=== PATIENT | female | born 1935 | race Caucasian/White ===

== ENCOUNTER → 2016-08-22 | Outpatient (CLI) | payer OTHER, MEDICARE | LOC: MMPC 11:11 | DX: I27.2 Other secondary pulmonary hypertension (principal); R60.9 Edema, unspecified; G47.33 Obstructive sleep apnea (adult) (pediatric) | CPT/HCPCS: 99213; G0463 ==

== ENCOUNTER → 2016-08-26 | Outpatient (CLI) | payer OTHER, MEDICARE ==
[2016-08-26 17:03] LABS: BASOPHILS # (AUTO) 0.04 10*3/UL; BASOPHILS % (AUTO) 0.6 % (0-1); EOSINOPHILS % (AUTO) 1.5 % (0-8); HEMATOCRIT 48.1 % (37.0-47.0); HEMOGLOBIN 16.1 g/dL (12.0-16.0); IMM GRAN % (AUTO) 0.1 % (0-5); IMM GRAN# (AUTO) 0.01 10*3/UL; LYMPHOCYTES # (AUTO) 1.46 10*3/uL; LYMPHOCYTES % (AUTO) 21.9 % (10-50); MEAN CORPUSCULAR HEMOGLOBIN 27.4 PG (27-31); MEAN CORPUSCULAR HGB CONC 33.5 g/dL (33-37); MEAN PLATELET VOLUME 9.4 FL (7.4-12.2); MONOCYTES % (AUTO) 7.5 % (5-15); NEUTROPHILS # (AUTO) 4.56 10*3/UL; NEUTROPHILS % (AUTO) 68.4 % (50-80); RDW COEFFICIENT OF VARIATION 19.4 % (11.5-14.5); RED BLOOD COUNT 5.88 10^6/uL (4.20-5.40); WHITE BLOOD COUNT 6.67 10^3/uL (4.8-10.8)
[2016-08-26 17:13] LABS: CALCIUM 9.7 mg/dL (8.7-10.7); POTASSIUM 4.2 meq/L (3.8-5.2)
[2016-08-26 17:57] LABS: PLATELET MORPHOLOGY COMMENT NORMAL MORPHOLOGY (NORM)
[2016-08-26 18:23] LABS: FREE T4 (FREE THYROXINE) 1.39 ng/dL (0.93-1.71)
== END ==
LOC: MOB LAB 16:25
DX: I10 Essential (primary) hypertension (principal); G47.33 Obstructive sleep apnea (adult) (pediatric); I27.2 Other secondary pulmonary hypertension; I50.9 Heart failure, unspecified
CPT/HCPCS: 36415; 80048; 83880; 84439; 84443; 85025

== ENCOUNTER 2016-09-03 17:57 | Emergency (ER) | payer OTHER, MEDICARE ==
[2016-09-03] MEDS ORDERED: NORMAL SALINE 10 ML SYRINGE FLUSH IVP PRN (18:25)
[2016-09-03 19:24] LABS: BASOPHILS # (AUTO) 0.04 10*3/UL; BASOPHILS % (AUTO) 0.5 % (0-1); EOSINOPHILS % (AUTO) 1.1 % (0-8); HEMATOCRIT 48.9 % (37.0-47.0); HEMOGLOBIN 16.3 g/dL (12.0-16.0); IMM GRAN % (AUTO) 0.1 % (0-5); IMM GRAN# (AUTO) 0.01 10*3/UL; LYMPHOCYTES # (AUTO) 1.44 10*3/uL; LYMPHOCYTES % (AUTO) 19.2 % (10-50); MEAN CORPUSCULAR HEMOGLOBIN 26.8 PG (27-31); MEAN CORPUSCULAR HGB CONC 33.3 g/dL (33-37); MEAN PLATELET VOLUME 9.8 FL (7.4-12.2); MONOCYTES # (AUTO) 0.52 10*3/UL (0.3-0.8); MONOCYTES % (AUTO) 6.9 % (5-15); NEUTROPHILS # (AUTO) 5.42 10*3/UL; NEUTROPHILS % (AUTO) 72.2 % (50-80); RDW COEFFICIENT OF VARIATION 20.1 % (11.5-14.5); RED BLOOD COUNT 6.09 10^6/uL (4.20-5.40); WHITE BLOOD COUNT 7.51 10^3/uL (4.8-10.8)
[2016-09-03 19:30] LABS: PLATELET MORPHOLOGY COMMENT NORMAL MORPHOLOGY (NORM)
[2016-09-03 19:35] LABS: PROTHROMBIN TIME 15.7 secs (9.7-11.4)
[2016-09-03 19:38] LABS: BILIRUBIN,TOTAL 2.3 mg/dL (0.3-1.2); C-REACTIVE PROTEIN 1.9 mg/dL (0.0-0.9); CALCIUM 9.9 mg/dL (8.7-10.7); CREATININE 1.2 mg/dL (0.50-1.20); POTASSIUM 4.9 meq/L (3.8-5.2); TOTAL PROTEIN 6.6 g/dL (6.1-8.0)
[2016-09-03 21:06] VITALS: RESP 18; TEMP 96.5
--- NOTE | 2016-09-03 21:35 | PDOC ---
Lower Extremity Problem HPI - General Chief Complaint: Lower Extremity Problem/Injury Stated Complaint: LEG PAIN Date Seen by Provider: 09/03/16 Time Seen by Provider: 21:05 Source: POSITIVE: Patient Exam Limitations: POSITIVE: No limitations Nurse's Notes Reviewed & Considered: Yes - History of Present Illness Initial Comments: The patient is an 80-year-old female who presents to the emergency department with right leg pain. She has a known problem with her tricuspid valve and needs this replaced according to the doctors in [place]. She has had increased leg edema and congestive heart failure because of this. For the past couple of days she has had some pain in her right calf. She tried wearing compression stockings for most of the day today however seem to be having worse calf pain with the stockings on so they were removed. She was still having considerable pain and subsequently came to the emergency department by ambulance. She denies any current chest pain or increased shortness of breath. She denies abdominal pain, fevers or chills or any other associated symptoms. She is taking Lasix and the dose was just doubled yesterday. - Patient Home Medications Home Medications: Home Medications Potassium Chloride 1 tab PO BID #180 tab 05/18/16 Furosemide [Lasix] 1 tab PO BID #180 tab 06/14/16 Levothyroxine Sodium 1 tab PO QD #30 tab 08/31/16 Ascorbic Acid [Vitamin C] 1,000 mg PO DAILY 09/03/16 Cholecalciferol (Vitamin D3) [Vitamin D3] 5,000 unit PO DAILY 09/03/16 Garlic 1,000 mg PO DAILY 09/03/16 Levocarnitine Tartrate [l-Carnitine] 500 mg PO DAILY 09/03/16 Magnesium Oxide 400 mg PO DAILY 09/03/16 Multivitamin [Multivitamins] 1 each PO DAILY 09/03/16 Vitamin E 100 unit PO DAILY 09/03/16 - Patient Allergies Allergies/Adverse Reactions: Allergies Allergy/AdvReac Type Severity Reaction Status Date / Time Penicillins Allergy SWELLING Verified 09/03/16 18:17 Past Medical History - lucio HEENT History: Denies History Cardiovascular History: Hypertension Respiratory History: Other (please comment) Additional Respiratory History: pulmonary htn Gastrointestinal History: Denies History Genitourinary History: Denies History Endocrine History: Denies History Musculoskeletal History: Denies History Prosthesis or Implant: No Neurological History: Denies History Blood Disorders: Denies History Psychiatric History: Denies History History of Sexually Transmitted Diseases: No Cancer History: Denies History In Past Year Been Physically Harmed or Verbally Threatened: No History of MDRO: No History of Other Communicable Diseases: No Tobacco Use: Former Smoker Alcohol Use: Rarely Type of alcohol normally used: Beer Substance Use Type: None Previous Surgical History: No Significant Family History: No pertinent family hx Past Medical History Reviewed: Reviewed - No Changes ROS - Limitations ROS Limitations: No Limitations Constitution: DENIES: Chills, Fever Cardiovascular: DENIES: Chest Pain, Heart Palpitations Respiratory: DENIES: Shortness Of Breath Neurological: REPORTS: Denies Neuro Symptoms Gastrointestinal: REPORTS: Denies GI Symptoms. DENIES: Abdominal Pain Musculoskeletal: REPORTS: Calf Pain (Right-sided) Eyes: REPORTS: Denies Symptoms ENT: REPORTS: Denies Symptoms Skin: DENIES: Rash Lower Ext Problem Exam - General Appearance General Appearance: POSITIVE: Alert, Cooperative, No Acute Distress - Extremities Lower Extremity: POSITIVE: Other (Examination lower extremities reveals bilateral edema from the knees down, she does have tenderness to the right calf , good dorsalis pedis pulse bilaterally) Vascular: POSITIVE: No Vascular Compromise - Neuro / Psych Neuro/Psych: POSITIVE: Sensation Normal, Motor Normal - Skin Skin: POSITIVE: Normal Color, No Rash - HEENT HEENT: POSITIVE: Head Inspection Nml - Respiratory / CVS Respiratory / CVS: POSITIVE: No Respiratory Distress, Breath Sounds Normal, Regular Rate/Rhythm, Murmur (Grade 3/6 systolic murmur) Peripheral Pulses: Dorsalis-pedis (R): 2+, Dorsalis-pedis (L): 2+ - Abdomen Abdomen: Soft: (All Quadrants), Denies Tenderness: (All Quadrants), No Distention: (All Quadrants) Lower Ext Problem Progress - Results Reviewed by me Xrays/CTs/US Reviewed by me: Yes Discussed with Radiologist: Yes Radiology Findings: Ultrasound of the right lower extremity is negative for DVT. Lab Results Reviewed: Yes Lab Results:: Laboratory Results 09/03/16 Range/Units 19:21 WBC 7.51 (4.8-10.8) 10^3/uL RBC 6.09 H (4.20-5.40) 10^6/uL Hgb 16.3 H (12.0-16.0) g/dL Hct 48.9 H (37.0-47.0) % MCV 80.3 L (81-99) FL MCH 26.8 L (27-31) PG MCHC 33.3 (33-37) g/dL RDW Std Deviation 54.7 H (39-50) fL RDW Coeff of Shelly 20.1 H (11.5-14.5) % Plt Count 202 (140-350) 10*3/uL MPV 9.8 (7.4-12.2) FL Immature Gran % (Auto) 0.1 (0-5) % Neut % (Auto) 72.2 (50-80) % Lymph % (Auto) 19.2 (10-50) % Stanly % (Auto) 6.9 (5-15) % Eos % (Auto) 1.1 (0-8) % Baso % (Auto) 0.5 (0-1) % Immature Gran # (Auto) 0.01 10*3/UL Neut # (Auto) 5.42 10*3/UL Lymph # (Auto) 1.44 10*3/uL Stanly # (Auto) 0.52 (0.3-0.8) 10*3/UL Eos # (Auto) 0.08 10*3/UL Baso # (Auto) 0.04 10*3/UL WBC Morphology Comment Normal morphology (NORM) Plt Morphology Comment Normal morphology (NORM) RBC Morph Comment Normal morphology (NORM) PT 15.7 H (9.7-11.4) secs INR 1.51 (0.00-5.90) N/A Sodium 139 (135-145) meq/L Potassium 4.9 (3.8-5.2) meq/L Chloride 100 (98-112) meq/L Carbon Dioxide 25 (23-33) meq/L Anion Gap 14 (5-20) BUN 30 H (7-22) mg/dL Creatinine 1.2 (0.50-1.20) mg/dL Estimated GFR (>60 ml/min/1.73m(2)) BUN/Creatinine Ratio 25.00 H (6-20) Glucose 87 (78-110) mg/dL Calculated Osmolality 292.0 (267-292) mOsm/kg Calcium 9.9 (8.7-10.7) mg/dL Total Bilirubin 2.3 H (0.3-1.2) mg/dL AST 80 H (8-39) IU/L ALT 67 H (9-52) IU/L Alkaline Phosphatase 144 H (38-126) IU/L C-Reactive Protein 1.9 H (0.0-0.9) mg/dL NT-Pro-B Natriuret Pep 97356 H (0-450) PG/ML Total Protein 6.6 (6.1-8.0) g/dL Albumin 3.7 (3.5-4.8) g/dL Globulin 2.9 (2.50-4.10) g/dL Albumin/Globulin Ratio 1.20 L (1.3-2.0) mg/g - Patient's Progress MDM / ED Course: The ultrasound did not show any evidence of DVT. She does have known congestive heart failure and tricuspid valve dysfunction. She is in the process of being referred to the [facility] for surgical consideration/ evaluation. Currently I think her pain in her right calf is secondary to the edema in her lower extremities. Her Lasix dose was just doubled yesterday and she was advised to continue this dose for now. In addition she will continue compression stockings and try to put them on earlier in the morning before her legs start to swell. She is advised return to the emergency room she develops increased pain, fevers or chills, increased shortness of breath or chest pain, any worsening or change in symptoms. She will follow-up with primary care in approximately 1 week. In addition she will continue to pursue cardiac evaluation and [place]. - Consult Counseled: POSITIVE: Patient, Family, RE: Lab Results, RE: Radiology Results, RE : DX, RE: Need for F/U Patient Care Time - Estimated PCT Patient Care Time (In Minutes): 35 Vital Signs - Recent Vital Signs Vital Signs: Vital Signs (Last 8 hours) Temp Pulse Resp BP Pulse Ox 09/03/16 21:00 96.5 F L 85 18 114/70 94 - VS Reviewed Vital Signs Reviewed: Yes Discharge Clinical Impression: CHF (congestive heart failure), Leg edema Condition: Stable Patient Instructions Given at Discharge: Heart Failure (ED), Leg Edema (ED) Additional Instructions: The ultrasound of the right leg did not show any evidence of blood clot. The pain in the calf is thought to be more related to the extra swelling in her legs which causes stretching and can cause pain. This may have been exacerbated to some degree by the compression stockings. Would recommend continuation of the increased dose of Lasix to help try to eliminate extra fluid. In addition continue compression stockings, these work best if applied early in the morning before the swelling accumulates. You should have repeat blood work in approximately 1 week secondary to the increased dose of Lasix to make sure your kidney function and electrolytes are remaining good. In addition your liver enzymes were somewhat elevated today this is most likely related to the congestive heart failure as well. Keep your cardiology follow- up as scheduled. Return to the emergency room if increased leg pain or swelling , increased shortness of breath, any worsening or change in symptoms. Follow Up With: YVETTE LOZADA [Primary Care Provider] -
--- NOTE | 2016-09-04 04:24 | DI ---
HISTORY: Right calf pain x4 days. TECHNIQUE: Sonographic images of the right lower extremity were obtained and submitted for interpret ation. FINDINGS: Sonographic images through the right lower extremity demonstrates no evidence of deep veno us thrombosis. IMPRESSION: 1. No deep venous thrombosis.
== END 2016-09-03 20:20 | disposition home or self-care (01) ==
LOC: ER 17:57
DX: I50.9 Heart failure, unspecified (principal); R60.1 Generalized edema; I10 Essential (primary) hypertension; M79.604 Pain in right leg
CPT/HCPCS: 36415; 80053; 83880; 85025; 85610; 86140; 93971; 99283

== ENCOUNTER 2016-09-06 01:05 | Emergency (ER) | payer OTHER, MEDICARE ==
[2016-09-06 01:33] VITALS: RESP 20
[2016-09-06] MEDS ORDERED: NORMAL SALINE 10 ML SYRINGE FLUSH IVP PRN (01:36)
[2016-09-06] MEDS ORDERED: MORPHINE SULFATE 2 MG/1 ML IVP ONE ×3 (01:36→04:56)
[2016-09-06] MEDS ORDERED: ONDANSETRON 4 MG/2 ML VIAL IVP ONE (01:36)
--- NOTE | 2016-09-06 02:14 | PDOC ---
General Adult HPI - General Chief Complaint: General Medical Stated Complaint: Righ leg pain Date Seen by Provider: 09/06/16 Time Seen by Provider: 01:15 Source: POSITIVE: Patient Exam Limitations: POSITIVE: No limitations Nurse's Notes Reviewed & Considered: Yes - History of Present Illness Initial Comment: The patient is an 80-year-old female who returns to the emergency room with bilateral leg pain. She was evaluated here in the emergency room 2 nights ago with complaints of right calf pain. She had undergone ultrasound which was negative for DVT. She has a known problem with congestive heart failure and something wrong with her tricuspid valve. She has undergone cardiac workup in [place] and they have recommended referral to [place] for surgical considerations. Her lab work at her last visit revealed elevated liver enzymes as well as markedly elevated BNP. She had increased her dose of Lasix over the last several days and has been using compression stockings. She states that the swelling in her legs goes down at night however returns by the end of the day despite the compression stockings. She reports significant pain now in both of her legs which is unrelieved with Tylenol. This pain is keeping her from sleeping. In addition she has become increasingly weak in general. She is now unable to walk without assistance. She has significant shortness of breath with any activity. She denies chest pain. She reports that she feels like she is retaining fluid in her abdomen. Her abdomen was swollen enough this evening that they had to cut her panties at home to relieve the pressure. She denies any current abdominal pain, fevers or chills or any other associated complaints. Have you received a tetanus shot in the past 10 years?: Yes - Patient Home Medications Home Medications: Home Medications Potassium Chloride 1 tab PO BID #180 tab 05/18/16 Furosemide [Lasix] 1 tab PO BID #180 tab 06/14/16 Levothyroxine Sodium 1 tab PO QD #30 tab 08/31/16 Ascorbic Acid [Vitamin C] 1,000 mg PO DAILY 09/03/16 Cholecalciferol (Vitamin D3) [Vitamin D3] 5,000 unit PO DAILY 09/03/16 Garlic 1,000 mg PO DAILY 09/03/16 Levocarnitine Tartrate [l-Carnitine] 500 mg PO DAILY 09/03/16 Magnesium Oxide 400 mg PO DAILY 09/03/16 Multivitamin [Multivitamins] 1 each PO DAILY 09/03/16 Vitamin E 100 unit PO DAILY 09/03/16 - Patient Allergies Allergies/Adverse Reactions: Allergies Allergy/AdvReac Type Severity Reaction Status Date / Time Penicillins Allergy SWELLING Verified 09/06/16 01:22 Past Medical History - heen HEENT History: Denies History Cardiovascular History: Hypertension, Congenital Heart Disease, Valvular Heart Disease Respiratory History: Shortness of Breath, Other (please comment) Additional Respiratory History: pulmonary htn Gastrointestinal History: Denies History Genitourinary History: Denies History Endocrine History: Denies History Musculoskeletal History: Denies History Prosthesis or Implant: No Neurological History: Denies History Blood Disorders: Denies History Psychiatric History: Denies History History of Sexually Transmitted Diseases: No Female Reproductive History: Denies History Obstetrical History: Denies History Cancer History: Denies History In Past Year Been Physically Harmed or Verbally Threatened: No History of MDRO: No History of Other Communicable Diseases: No Tobacco Use: Former Smoker Alcohol Use: Occasionally Substance Use Type: None Previous Surgical History: Yes Type / Date of Surgery: Left hip. Left ankle Significant Family History: No pertinent family hx Past Medical History Reviewed: Reviewed - No Changes ROS - Limitations ROS Limitations: No Limitations Constitution: REPORTS: Weakness (Generalized weakness). DENIES: Chills, Fever Cardiovascular: REPORTS: Edema. DENIES: Chest Pain, Heart Racing Respiratory: REPORTS: Shortness Of Breath Neurological: DENIES: Headache, Numbness, Weakness Gastrointestinal: REPORTS: Nausea, Vomitting. DENIES: Abdominal Pain Endocrine: REPORTS: Fatigue Musculoskeletal: REPORTS: Lower Extremity Swelling Eyes: REPORTS: Denies Symptoms ENT: REPORTS: Denies Symptoms Skin: DENIES: Rash General Adult Exam - General Appearance General Appearance: POSITIVE: Alert, Cooperative, No Acute Distress - HEENT HEENT: POSITIVE: Head Inspection Nml, Eyes Inspection Nml, Pharynx Inspect. Nml , Dry Mucous Membranes - Neck Neck: POSITIVE: Normal Inspection. NEGATIVE: Lymphadenopathy - Respiratory Respiratory: POSITIVE: No Respiratory Distress, Breath Sounds Normal - Cardiovascular Cardiovascular: POSITIVE: Regular Rate & Rhythm, Murmur (2/6 systolic murmur) Peripheral Pulses: Dorsalis-pedis (R): 2+, Dorsalis-pedis (L): 2+ - Abdomen Abdomen: Soft: (All Quadrants), Denies Tenderness: (All Quadrants) Additional Abdominal Details: Her abdomen is somewhat distended however soft and nontender. - Skin Skin: POSITIVE: Normal Color, No Rash - Extremities Additional Extremities Details: She does have edema in her lower extremities bilaterally, she has diminished pulses in her feet however she has good cap refill. - Neurological / Psychological Neurological: POSITIVE: Oriented X3, Motor Normal, Sensation Normal General Adult Progress - Results Reviewed by me Xrays/CTs/US Reviewed by me: Yes Discussed with Radiologist: Yes Radiology Findings: Chest x-ray shows bilateral pleural effusions. CT scan of the abdomen and pelvis without IV contrast reveals evidence of bilateral pleural effusions, free fluid surrounding the liver, spleen and down in the pelvis, and nodular appearing liver diffuse soft tissue edema per radiologist. Lab Results Reviewed: Yes Lab Results:: Laboratory Results 09/06/16 09/06/16 Range/Units 02:10 02:25 WBC 9.82 (4.8-10.8) 10^3/uL RBC 6.47 H (4.20-5.40) 10^6/uL Hgb 17.4 H (12.0-16.0) g/dL Hct 51.3 H (37.0-47.0) % MCV 79.3 L (81-99) FL MCH 26.9 L (27-31) PG MCHC 33.9 (33-37) g/dL RDW Std Deviation 53.9 H (39-50) fL RDW Coeff of Shelly 20.8 H (11.5-14.5) % Plt Count 192 (140-350) 10*3/uL MPV 10.2 (7.4-12.2) FL Neutrophils % (Manual) 88 H (50-80) % Band Neutrophils % 0 (0-10) % Lymphocytes % (Manual) 9 L (10-50) % Monocytes % (Manual) 3 (0-12) % Eosinophils % (Manual) 0 (0-8) % Basophils % (Manual) 0 (0-1) % Metamyelocytes % Not Reportable Myelocytes % Not Reportable Promyelocytes % Not Reportable Blast Cells Not Reportable WBC Morphology Comment Normal morphology (NORM) Plt Morphology Comment Normal morphology (NORM) RBC Morph Comment See comments (NORM) D-Dimer 8.89 H (0.00-0.59) mg/L Sodium 140 (135-145) meq/L Potassium 5.5 H (3.8-5.2) meq/L Chloride 100 (98-112) meq/L Carbon Dioxide 22 L (23-33) meq/L Anion Gap 18 (5-20) BUN 46 H (7-22) mg/dL Creatinine 2.1 H (0.50-1.20) mg/dL Estimated GFR Business Programmer BUN/Creatinine Ratio 21.90 H (6-20) Glucose 91 (78-110) mg/dL Calculated Osmolality 301.0 H (267-292) mOsm/kg Calcium 10.0 (8.7-10.7) mg/dL Magnesium 2.6 H (1.6-2.4) mg/dL Total Bilirubin 3.6 H D (0.3-1.2) mg/dL AST 552 H (8-39) IU/L ALT 263 H D (9-52) IU/L Alkaline Phosphatase 145 H (38-126) IU/L Troponin I 1.340 H* (< 0.040) ng/mL NT-Pro-B Natriuret Pep 98684 H (0-450) PG/ML Total Protein 6.8 (6.1-8.0) g/dL Albumin 3.8 (3.5-4.8) g/dL Globulin 3.0 (2.50-4.10) g/dL Albumin/Globulin Ratio 1.20 L (1.3-2.0) mg/g Amylase 37 (30-110) U/L Lipase 70 (23-300) IU/L EKG Interpreted/Reviewed By Me:: Yes EKG Interpretation:: POSITIVE: Normal Sinus Rhythm, Normal Rate, Normal ST/T, Other (She does have Q waves in the inferior leads and poor R-wave progression, no previous EKGs available for comparison, no ST segment or T-wave changes.) - Patient's Progress MDM / ED Course: An IV was established and the patient did receive morphine 2 mg and Zofran 4 mg IV for pain. Labs were repeated. Her lab work reveals significant changes from just 2 days ago. Her creatinine has gone from 1.2 up to 2.1 and her BUN is now 46. Her liver enzymes are also markedly elevated compared to the mild elevation 2 days ago. Her BNP has gone from 11,000 up to 34,000. Her troponin is also elevated at 1.3 likely secondary to congestive heart failure and renal failure. Her potassium and magnesium are also elevated at 5.5 and 2.6. These findings were discussed with Dr. Kelley who is the medical staff coordinator radiation oncology nurse in [place] where the patient recently underwent cardiac catheterization and echocardiogram. He reviewed her studies there and stated that her coronary arteries did not show any significant blockage. She had severe tricuspid valve regurgitation and diminished ventricular function with an ejection fraction of 45%. His recommendation was aggressive diuresis and he also agreed to accept the patient for continued treatment and evaluation there. I subsequently discussed the patient with Dr. Wilkerson from the hospitalist service. He recommended treating the hyperkalemia with 2 g of calcium gluconate as well as an amp of D50 with 10 units of IV insulin. In addition the patient will be started on Lasix 40 mg IV initially with subsequent 10 mg per hour drip. A Scales catheter was placed secondary to the aggressive diuresis and need to monitor output. These findings and recommendations were discussed with the patient and her family. They are in agreement with this plan. Arrangements will be made to transfer the patient to [place] by ground ambulance. - Consult Counseled: POSITIVE: Patient, Family, RE: Lab Results, RE: Radiology Results, RE : DX, RE: Need for F/U Patient Care Time - Estimated PCT Patient Care Time (In Minutes): 70 Vital Signs - Recent Vital Signs Vital Signs: Vital Signs (Last 8 hours) Temp Pulse Pulse Resp BP BP Pulse Ox 09/06/16 06:00 97.3 F 90 20 101/73 92 09/06/16 01:05 96.8 F 83 20 103/63 96 - VS Reviewed Vital Signs Reviewed: Yes Discharge Clinical Impression: CHF (congestive heart failure), Elevated LFTs, Renal failure, Hyperkalemia Discharge Disposition: Transferred to Tertiary Care Facility Condition: Stable Follow Up With: YVETTE LOZADA [Primary Care Provider] - Date Decision to Transfer to Another Facility: 09/06/16 Time Decision to Transfer to Another Facility: 03:45
--- NOTE | 2016-09-06 02:15 | EKG ---
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
[2016-09-06 02:34] LABS: HEMATOCRIT 51.3 % (37.0-47.0); HEMOGLOBIN 17.4 g/dL (12.0-16.0); MEAN CORPUSCULAR HEMOGLOBIN 26.9 PG (27-31); MEAN CORPUSCULAR HGB CONC 33.9 g/dL (33-37); MEAN PLATELET VOLUME 10.2 FL (7.4-12.2); RDW COEFFICIENT OF VARIATION 20.8 % (11.5-14.5); RED BLOOD COUNT 6.47 10^6/uL (4.20-5.40); WHITE BLOOD COUNT 9.82 10^3/uL (4.8-10.8)
[2016-09-06 02:44] LABS: ASPARTATE AMINO TRANSFERASE 552 IU/L (8-39); BILIRUBIN,TOTAL 3.6 mg/dL (0.3-1.2); BLOOD UREA NITROGEN 46 mg/dL (7-22); CHLORIDE 100 meq/L (98-112); CREATININE 2.1 mg/dL (0.50-1.20); GLUCOSE 91 mg/dL (78-110); MAGNESIUM 2.6 mg/dL (1.6-2.4); POTASSIUM 5.5 meq/L (3.8-5.2); SODIUM 140 meq/L (135-145); TOTAL PROTEIN 6.8 g/dL (6.1-8.0)
[2016-09-06 02:45] LABS: AMYLASE 37 U/L (30-110)
[2016-09-06 02:50] LABS: BAND NEUTROPHILS % 0 % (0-10); LYMPHOCYTES % (MANUAL) 9 % (10-50); NEUTROPHILS % (MANUAL) 88 % (50-80); PLATELET MORPHOLOGY COMMENT NORMAL MORPHOLOGY (NORM)
[2016-09-06 02:51] LABS: BASOPHILS % (MANUAL) 0 % (0-1); EOSINOPHILS % (MANUAL) 0 % (0-8); MONOCYTES % (MANUAL) 3 % (0-12)
[2016-09-06 02:53] LABS: NT-PRO BNP 34900 PG/ML (0-450)
[2016-09-06] MEDS ORDERED: FUROSEMIDE 10 MG/1 ML - 4 ML IVP ONE (03:45)
[2016-09-06] MEDS ORDERED: CALCIUM GLUCONATE 100 MG/1 ML - 10 ML IVP PRN (03:46)
[2016-09-06] MEDS ORDERED: DEXTROSE 50%-WATER SYRINGE 50 ML SYRINGE IVP ONE (03:47)
[2016-09-06] MEDS ORDERED: INSULIN REGULAR, HUMAN 100 UNIT/1 ML - 3 ML IV ONE (03:48)
[2016-09-06] MEDS ORDERED: Sodium Chloride 0.9% 0 ML IV ONE (04:03)
[2016-09-06] MEDS ORDERED: NYSTATIN 15 GM POWDER TOPICAL ONE (04:18)
--- NOTE | 2016-09-06 05:17 | DI ---
HISTORY: Elevated liver function tests, vomiting. TECHNIQUE: Contiguous axial images of the abdomen and pelvis were obtained and submitted for interpr etation. FINDINGS: Evaluation is significantly limited in the absence of oral and intravenous contrast. Normal CT appearance of the spleen, kidneys, and adrenal glands. There is mild gallbladder wall thic kening and pericholecystic fat stranding. There is fatty atrophy of the pancreas. Ureters and bladd er are unremarkable. No radiopaque renal or collecting system calculi. No evidence of obstructive ur opathy. Moderate perihepatic and pelvic free fluid is noted. The liver is shrunken with a nodular co ntour. There is colonic diverticulosis. Diffuse mesenteric fat stranding limits evaluation for an acute intr aperitoneal process. Hollow viscus organs demonstrate normal course and caliber. There is no intraper itoneal free air. Vascular structures are intact with atheromatous aortoiliac and coronary artery ca lcifications. No abdominopelvic lymphadenopathy is present. The uterus and adnexa are unremarkable, though better evaluated with pelvic ultrasound. There is no inguinal or umbilical hernia. There are moderate sized bilateral pleural effusions with compressive atelectasis versus early airspa ce disease of the bilateral lower lobes. A pneumatocele versus pulmonary abscess is noted in the righ t lung base. There is a moderate sized hiatal hernia.. Diffuse body wall edema is noted. There is diffuse demineralization of the osseous structures with mu ltilevel degenerative disc disease. There is grade 1 anterolisthesis of L4 on L5. The patient is stat us post left total hip arthroplasty. IMPRESSION: 1. Mild gallbladder wall thickening and pericholecystic fat stranding. A dedicated right upper quadr ant ultrasound is recommended if there is clinical concern for acute cholecystitis. 2. Fatty pancreatic atrophy. 3. Moderate perihepatic and pelvic free fluid with evidence of a shrunken, nodular liver. These find ings are concerning for cirrhosis. 4. Diffuse body wall edema. 5. Colonic diverticulosis with limited evaluation for an acute mesenteric process. 6. Moderate bilateral pleural effusions with compressive atelectasis versus early airspace disease of the lower lobes bilaterally. Pneumatocele versus pulmonary abscess in the right lung base. Contrast enhanced imaging may provide better characterization. Follow-up to resolution is recommended. NOTIFICATION: The above findings were phoned to Giovanna Covington in the ER Department on 09/06/2016 at 7:20am EST.
--- NOTE | 2016-09-06 05:20 | DI ---
HISTORY: CHF. TECHNIQUE: AP and lateral views of the chest are submitted. FINDINGS: Left larger than right pleural effusions are noted. Patchy left lung base opacity. There i s no pneumothorax. Heart size is at the upper limits of normal with increased pulmonary vasculature that most likely rep resents pulmonary edema in the setting of CHF. Atheromatous calcifications are present in the arch o f a tortuous aorta. Degenerative changes of the AC joints and spine are noted. IMPRESSION: 1. Left larger than right pleural effusions with a patchy left lung base opacity that may represent a telectasis versus early consolidation in the correct clinical setting. Follow-up to resolution is re commended. 2. Borderline cardiomegaly with increased pulmonary vasculature most likely represents pulmonary cecilio a in the setting of congestive heart failure.
[2016-09-06 06:10] VITALS: TEMP 97.3
== END 2016-09-06 06:03 | disposition short-term general hospital (02) ==
LOC: ER 01:05
DX: I50.9 Heart failure, unspecified (principal); N19 Unspecified kidney failure; E87.5 Hyperkalemia; R79.89 Other specified abnormal findings of blood chemistry; M79.604 Pain in right leg; M79.605 Pain in left leg
CPT/HCPCS: 36415; 71020; 74176; 80053; 82150; 83690; 83735; 83880; 84484; 85007; 85379; 93005; 93010; 96365; 96366; 96375; 96376; 99284 ×2; J1815; J0610; J1940; J2270; J2405; J7050